=== PATIENT | female | born 1960 | race Caucasian/White ===

== ENCOUNTER 2016-11-20 08:12 | Emergency (ER) | payer MEDICAID ==
[~2016-11-20] VITALS: Ht 162.6 cm; Wt 59.0 kg
[2016-11-20 08:12] VITALS: BP_SYST 133
[2016-11-20] MEDS ORDERED: NACL 0.9% 1,000 ML IV ONE (09:00)
[2016-11-20 09:31] LABS: BASOPHILS % (AUTO) 0.2 % (0.0-2.0); EOSINOPHILS % (AUTO) 0.1 % (0.0-4.0); HEMATOCRIT 36.5 % (36-48); HEMOGLOBIN 11.9 g/dL (12.0-16.0); LYMPHOCYTES # (AUTO) 0.3 K/uL (1.0-5.5); LYMPHOCYTES % (AUTO) 9.8 % (20.5-51.5); MEAN CORPUSCULAR HEMOGLOBIN 29 pg (27-31); MEAN CORPUSCULAR HGB CONC 33 % (32-36); MEAN CORPUSCULAR VOLUME 88 fL (79.0-98.0); MONOCYTES # (AUTO) 0.2 K/uL (0.0-1.0); MONOCYTES % (AUTO) 8.3 % (1.7-9.3); NEUTROPHILS # (AUTO) 2.1 K/uL (1.8-7.7); NEUTROPHILS % (AUTO) 81.6 % (40.0-70.0); PLATELET COUNT (AUTO) 124 K/uL (130-430); RED BLOOD CELL COUNT(AUTO) 4.15 MIL/uL (4.2-6.2); RED CELL DISTRIBUTION WIDTH 13.2 % (9.0-15.0); WHITE BLOOD COUNT (AUTO) 2.6 K/uL (4.8-10.8)
[2016-11-20 09:34] LABS: CALCIUM 8.3 mg/dL (8.4-11.0); CREATININE 0.96 mg/dL (0.55-1.30); POTASSIUM 3.8 mmol/L (3.5-5.1)
[2016-11-20 09:39] LABS: ALBUMIN 3.6 g/dL (3.4-4.8); TOTAL BILIRUBIN 0.4 mg/dL (0.0-1.0)
[2016-11-20 09:51] LABS: BILIRUBIN,URINE NEGATIVE (NEGATIVE); BLOOD, URINE 1+ (NEGATIVE); CLARITY/URINE CLEAR (CLEAR); COLOR,URINE YELLOW (YELLOW); GLUCOSE,URINE NEGATIVE (NEGATIVE); KETONES,URINE TRACE (NEGATIVE); LEUKOCYTE ESTERASE ,URINE NEGATIVE (NEGATIVE); NITRITE, URINE NEGATIVE (NEGATIVE); PH,URINE 7.5 (5.0-8.0); PROTEIN URINE NEGATIVE (NEGATIVE); UROBILINOGEN,URINE 0.2 (0.2-1.0)
[2016-11-20 09:59] LABS: BACTERIA,URINE FEW /HPF (None Seen); RBC,URINE 0-3 /HPF (0-3); WBC,URINE 0-3 /HPF (0-3)
[2016-11-20 10:50] VITALS: BP_SYST 132
== END 2016-11-20 10:50 | disposition home or self-care (01) ==
LOC: SED 08:12
DX: B33.8 Other specified viral diseases (principal); M79.1 Myalgia
CPT/HCPCS: 36415; 71010; 80053; 81000; 83605; 85025; 87040; 96360; 96361; 99285; J7030

== ENCOUNTER 2016-11-22 20:00 | Emergency (ER) | payer MEDICAID ==
[~2016-11-22] VITALS: Ht 162.6 cm; Wt 63.5 kg
[2016-11-22 20:00] VITALS: BP_SYST 135
--- NOTE | 2016-11-22 20:00 | NUR ---
Patient to ER bed 3 to gown for evaluation. Side rails up. Report given to Katt SAMPSON.
--- NOTE | 2016-11-22 20:05 | NUR ---
Patient AAO x4, sitting in bed, restless, sister at bedside, c/o flu-like symptoms x 7 days with nausea/ vomiting and inability to "keep food or fluids down". No acute distress noted. Will continue to monitor.
--- NOTE | 2016-11-22 20:15 | NUR ---
ER at bedside examining patient.
[2016-11-22] MEDS ORDERED: NACL 0.9% 1,000 ML IV ONE (20:45)
[2016-11-22] MEDS ORDERED: ONDANSETRON HCL 4 MG/2 ML VIAL IVP ONE (20:45)
[2016-11-22 21:08] LABS: ANION GAP 7 (5-15); CALCIUM 8.2 mg/dL (8.4-11.0); CHLORIDE 103 mmol/L (98-107); CREATININE 0.83 mg/dL (0.55-1.30); GLUCOSE 118 mg/dL (70-99); POTASSIUM 3.6 mmol/L (3.5-5.1); SODIUM SERUM 136 mmol/L (136-145); UREA NITROGEN, BLOOD 9 mg/dL (8-21)
[2016-11-22 21:10] LABS: GFR AFRICAN AMERICAN 92 mL/min (>90)
[2016-11-22 21:15] LABS: INR 1.1 (0.8-1.2)
[2016-11-22 21:21] LABS: BASOPHILS % (AUTO) 0.1 % (0.0-2.0); HEMOGLOBIN 10.4 g/dL (12.0-16.0); LYMPHOCYTES # (AUTO) 0.3 K/uL (1.0-5.5); LYMPHOCYTES % (AUTO) 8.8 % (20.5-51.5); MEAN CORPUSCULAR HEMOGLOBIN 29 pg (27-31); MEAN CORPUSCULAR HGB CONC 34 % (32-36); MEAN CORPUSCULAR VOLUME 87 fL (79.0-98.0); MONOCYTES # (AUTO) 0.2 K/uL (0.0-1.0); MONOCYTES % (AUTO) 4.8 % (1.7-9.3); NEUTROPHILS # (AUTO) 2.9 K/uL (1.8-7.7); NEUTROPHILS % (AUTO) 86.3 % (40.0-70.0); RED BLOOD CELL COUNT(AUTO) 3.58 MIL/uL (4.2-6.2); RED CELL DISTRIBUTION WIDTH 12.7 % (9.0-15.0); WHITE BLOOD COUNT (AUTO) 3.4 K/uL (4.8-10.8)
[2016-11-22 21:25] LABS: PLATELET COUNT (AUTO) 105 K/uL (130-430)
[2016-11-22 21:27] LABS: ALANINE AMINOTRANSFERASE 61 U/L (12-78); ALBUMIN 3.3 g/dL (3.4-4.8); ASPARTATE AMINOTRANSFERASE 75 U/L (10-37); FREE T4 (FREE THYROXINE) 0.8 ng/dL (0.6-1.6); TOTAL BILIRUBIN 0.4 mg/dL (0.0-1.0); TOTAL PROTEIN, SERUM 6.5 g/dL (6.4-8.3)
[2016-11-22 21:29] LABS: ALCOHOL, BLOOD < 3 mg/dL (<10)
--- NOTE | 2016-11-22 22:00 | NUR ---
Per Dr. Reveles EKG and Urine collection are not needed. Verabl order to D/C.
[2016-11-22 22:15] VITALS: BP_SYST 120
--- NOTE | 2016-11-22 22:15 | NUR ---
Patient given written and verbal discharge instructions and verbalizes understanding. ER MD discussed with patient the results and treatment provided. Patient in stable condition. ID arm band removed. IV catheter removed intact and dressing applied, no active bleeding. Rx of zofran given. Patient educated on pain management and to follow up with PMD. Pain Scale 0/10 . Opportunity for questions provided and answered.
== END 2016-11-22 22:15 | disposition home or self-care (01) ==
LOC: SED 20:00
DX: R11.2 Nausea with vomiting, unspecified (principal); R53.1 Weakness; R50.9 Fever, unspecified
CPT/HCPCS: 36415; 74020; 80053; 83605; 83880; 84439; 84484; 85025; 85610; 87040; 96361; 96374; 99285; G0482; J2405; J7030

== ENCOUNTER 2016-11-25 13:06 | Inpatient (IN) | payer MEDICAID ==
[~2016-11-25] VITALS: Ht 162.6 cm; Wt 62.1 kg
[2016-11-25 13:09] VITALS: BP_SYST 128
--- NOTE | 2016-11-25 13:12 | NUR ---
Pt states that she has had nausea and vomiting for the past 10 days with fevers. Pt states there is a weird smell that makes her nauseous. Pt has complaints of severe headache 03/01. Pt states that she has been in the ER twice since the symptoms started and has received hydration and zofran. No other injuries/complaints per pt or noted.
[2016-11-25] MEDS ORDERED: NACL 0.9% 1,000 ML IV ONE (14:00)
[2016-11-25] MEDS ORDERED: ONDANSETRON HCL 4 MG/2 ML VIAL IVP ONE (14:00)
--- NOTE | 2016-11-25 14:13 | NUR ---
PT REFUSED CHEST XRAY, STATES SHE JUST HAD ONE A FEW DAYS AGO HERE. DR OBRIEN AWARE.
--- NOTE | 2016-11-25 14:17 | NUR ---
TAKEN TO RADIOLOGY FOR TESTING VIA DAT
--- NOTE | 2016-11-25 14:18 | NUR ---
Pt was taken to CT in stable condition
--- NOTE | 2016-11-25 14:21 | NUR ---
Pt refused CXR because she had one on , Dr Reveles is aware
[2016-11-25] MEDS: DIPHENHYDRAMINE INJ 50 MG/ML VIAL IVP ONE ×2 (14:55→14:58)
--- NOTE | 2016-11-25 15:00 | NUR ---
Pt is resting in bed with no noted distress or discomfort.
[2016-11-25 15:14] LABS: BASOPHILS % (AUTO) 0.1 % (0.0-2.0); EOSINOPHILS % (AUTO) 0.1 % (0.0-4.0); HEMOGLOBIN 10.1 g/dL (12.0-16.0); LYMPHOCYTES # (AUTO) 0.6 K/uL (1.0-5.5); LYMPHOCYTES % (AUTO) 9.8 % (20.5-51.5); MEAN CORPUSCULAR HEMOGLOBIN 29 pg (27-31); MEAN CORPUSCULAR HGB CONC 33 % (32-36); MEAN CORPUSCULAR VOLUME 88 fL (79.0-98.0); MONOCYTES # (AUTO) 0.4 K/uL (0.0-1.0); NEUTROPHILS # (AUTO) 5.1 K/uL (1.8-7.7); RED BLOOD CELL COUNT(AUTO) 3.54 MIL/uL (4.2-6.2); RED CELL DISTRIBUTION WIDTH 13.1 % (9.0-15.0); WHITE BLOOD COUNT (AUTO) 6.1 K/uL (4.8-10.8)
[2016-11-25 15:20] LABS: CALCIUM 8.1 mg/dL (8.4-11.0); CREATININE 0.93 mg/dL (0.55-1.30); POTASSIUM 4.2 mmol/L (3.5-5.1)
[2016-11-25 15:22] LABS: INR 1.1 (0.8-1.2); PROTHROMBIN TIME 11.6 SECS (9.5-12.5)
[2016-11-25 15:38] LABS: ALBUMIN 3.1 g/dL (3.4-4.8); TOTAL BILIRUBIN 0.6 mg/dL (0.0-1.0); TOTAL PROTEIN, SERUM 6.4 g/dL (6.4-8.3)
[2016-11-25 15:42] LABS: PLATELET COUNT (AUTO) 89 K/uL (130-430)
--- NOTE | 2016-11-25 15:45 | NUR ---
Pt is eating fruit and jello with no difficulity.
[2016-11-25 15:54] LABS: BILIRUBIN,URINE 1+ (NEGATIVE); BLOOD, URINE 2+ (NEGATIVE); CLARITY/URINE CLEAR (CLEAR); COLOR,URINE AMBER (YELLOW); GLUCOSE,URINE NEGATIVE (NEGATIVE); KETONES,URINE 2+ (NEGATIVE); LEUKOCYTE ESTERASE ,URINE NEGATIVE (NEGATIVE); NITRITE, URINE NEGATIVE (NEGATIVE); PROTEIN URINE 1+ (NEGATIVE)
[2016-11-25 16:18] LABS: BACTERIA,URINE FEW /HPF (None Seen); COARSE GRANULAR CASTS,URINE 0-1 /LPF (None Seen); URINE AMORPHOUS URATE 2+ /HPF (None Seen); WBC,URINE 0-3 /HPF (0-3)
[2016-11-25 16:19] LABS: MUCUS,URINE 2+ /LPF (None Seen)
[2016-11-25 16:21] LABS: ERYTHROCYTE SEDIMENTATION RATE 12 MM/HR (0-20)
--- NOTE | 2016-11-25 16:40 | NUR ---
Dr Reveles is aware of low grade temp of 100.2 and medications are being ordered
[2016-11-25] MEDS ORDERED: AMPICILLIN SODIUM/SULBACTAM NA 3 GM in NS 100 ML IV ONE (16:45)
[2016-11-25] MEDS ORDERED: KETOROLAC TROMETHAMINE 30 MG VIAL IVP ONE (16:45)
[2016-11-25] MEDS ORDERED: ACETAMINOPHEN 500 MG TABLET PO ONE ×2 (16:45)
[2016-11-25] MEDS ORDERED: AMPICILLIN SODIUM/SULBACTAM NA 3 GM VIAL ONE (17:05)
--- NOTE | 2016-11-25 17:20 | NUR ---
Pt complaining of headache, medication was given, IV ATB given, lights are off and pt has cold cloth on forehead.
[2016-11-25] MEDS ORDERED: NACL 0.9% 1,000 ML IV SCH (18:00)
[2016-11-25] MEDS ORDERED: MORPHINE 2 MG/ML INJ. SYRINGE IVP PRN (18:30)
--- NOTE | 2016-11-25 18:37 | NUR ---
Waiting for Dr Hernandez to see the pt and chart on the pt before taking her to room 126B.
--- NOTE | 2016-11-25 19:00 | NUR ---
Patient will be admitted to care of Dr Hernandez. Admitted to Med Surg unit. Will go to room 126B. Belongings list completed. Summary report printed. Report will be given at bedside. Addendum: 11/25/[address] at [address] Hernandez was with the pt until 1854
--- NOTE | 2016-11-25 19:04 | NUR ---
ADMISSION NOTE Received patient from ER via gurney. Patient admitted with diagnosis of abdominal pain x10 days . Patient is awake, alert, oriented X 4. Patient oriented to hospital room, call light, toileting, pain management and safety-teach back done. Personal belongings checked and Belongings List documented. Call light within reach.
[2016-11-25 19:08] VITALS: BP_SYST 111
--- NOTE | 2016-11-25 19:55 | NUR ---
CONSULTATION PAGED REASON FOR CONSULTATION:FUO WAS CONSULT CALLED?Y PERSON WHO WAS NOTIFIED:LEONEL CONSULTING PHYSICIAN:JOSE HARRY ([facility] HEAD OF ACQUISITIONS) [facility] SPECIALTY:ID BRICK K[facility]N [facility] PHONE NUMBER:[phone]
[2016-11-25 20:00] VITALS: BP_SYST 114
[2016-11-25] MEDS: DOXYCYCLINE HYCLATE 100 MG CAPSULE PO SCH (22:15)
[2016-11-25] MEDS: cefTRIAXone 1 GM in D5W 50 ML IV SCH (23:48)
[2016-11-25] MEDS: D5/0.45 NS 1,000 ML IV SCH (23:51)
[2016-11-26 00:34] VITALS: BP_SYST 116
[2016-11-26] MEDS: PIPERACILLIN/TAZO 2.25G/DEX-IS 50 ML IV SCH ×2 (01:22→06:21)
[2016-11-26 03:26] VITALS: BP_SYST 112
[2016-11-26 07:42] LABS: BASOPHILS % (AUTO) 0.1 % (0.0-2.0); EOSINOPHILS % (AUTO) 0.1 % (0.0-4.0); HEMATOCRIT 30.5 % (36-48); HEMOGLOBIN 9.9 g/dL (12.0-16.0); LYMPHOCYTES % (AUTO) 15.7 % (20.5-51.5); MEAN CORPUSCULAR HEMOGLOBIN 29 pg (27-31); MEAN CORPUSCULAR HGB CONC 33 % (32-36); MEAN CORPUSCULAR VOLUME 89 fL (79.0-98.0); MONOCYTES # (AUTO) 0.8 K/uL (0.0-1.0); MONOCYTES % (AUTO) 12.3 % (1.7-9.3); NEUTROPHILS # (AUTO) 4.8 K/uL (1.8-7.7); NEUTROPHILS % (AUTO) 71.8 % (40.0-70.0); RED BLOOD CELL COUNT(AUTO) 3.43 MIL/uL (4.2-6.2); RED CELL DISTRIBUTION WIDTH 12.9 % (9.0-15.0); WHITE BLOOD COUNT (AUTO) 6.6 K/uL (4.8-10.8)
[2016-11-26 08:00] VITALS: BP_SYST 121
--- NOTE | 2016-11-26 08:00 | NUR ---
NOTE PT RESTING IN BED, WAITING FOR US OF ABDOMEN AND PELVIS. PT HAS IVF'S INFUSING WELL THROUGH LEFT HAND IV SITE AT THIS TIME. DENIES ANY SOB/RESP DISTRESS OR PAIN/DISCOMFORT. HAS THE NAUSEA FEELING AND IS PERSISTENT. CALL LIGHT WITHIN REACH.
[2016-11-26 08:04] LABS: ALBUMIN 2.5 g/dL (3.4-4.8); CALCIUM 7.7 mg/dL (8.4-11.0); CREATININE 0.85 mg/dL (0.55-1.30); POTASSIUM 3.4 mmol/L (3.5-5.1); TOTAL BILIRUBIN 0.5 mg/dL (0.0-1.0); TOTAL PROTEIN, SERUM 5.6 g/dL (6.4-8.3)
[2016-11-26] MEDS: ENOXAPARIN SODIUM 30 MG/0.3 ML SYRINGE SUBCUT SCH (08:29)
[2016-11-26] MEDS: DOXYCYCLINE HYCLATE 100 MG CAPSULE PO SCH ×2 (08:29→20:16)
[2016-11-26 09:50] LABS: PLATELET COUNT (AUTO) 95 K/uL (130-430)
--- NOTE | 2016-11-26 10:00 | NUR ---
NOTE PT HAD ALL HER TESTS COMPLETED AT THIS TIME. PT'S DAUGHTER AT BEDSIDE ASSISTING PT IN HER NEEDS. PT DENIES ANY NEEDS AT THIS TIME. CALL LIGHT WITHIN REACH.
[2016-11-26 12:17] VITALS: BP_SYST 133
[2016-11-26] MEDS ORDERED: ONDANSETRON HCL 4 MG/2 ML VIAL IVP PRN (12:30)
[2016-11-26] MEDS: IBUPROFEN 200 MG TABLET PO SCH ×3 (12:30→20:16)
--- NOTE | 2016-11-26 12:30 | NUR ---
NOTE PT SEEN BY DR THOMPSON AT THIS TIME. QUESTIONS/CONCERNS WERE ANSWERED AT THIS TIME. ORDERS WERE PUT IN AND CARRIED OUT. PT WANTS TO JUST REST AND STATES SHE WILL CALL IF SHE HAS ANY NEEDS. PT IS CHECKED ON Q1' AND PRN ALL SHIFT FOR NEEDS AND CARE. CALL LIGHT WITHIN REACH.
--- NOTE | 2016-11-26 14:00 | NUR ---
Discharge planning Met with patient at bedside to discuss possible transfer to contracted facility. Patient understands that she is OON and is agreeable to transfer if indicated by MD and insurance. Paged MD to see if patient is stable for transfer.
--- NOTE | 2016-11-26 15:00 | NUR ---
NOTE PT WAS MOVED FROM ROOM 128B TO ROOM 130B AT THIS TIME VIA BED. ALL PT'S BELONGINGS AND EQUIPMENT WERE TRANSFERRED WELL. PT STILL RESTING IN BED AND IVF'S INFUSING WELL. PT HAS FAMILY MEMBER AT BEDSIDE AT THIS TIME. PT HAS NAUSEA FEELING, REFUSES ANY MEDICATIONS AT THIS TIME. STATES IT MAKES THE NAUSEA FEELINGS WORSE. CALL LIGHT WITHIN REACH.
--- NOTE | 2016-11-26 16:00 | NUR ---
Case mgt: tyrone Owen spoke with Radha at [facility]--[facility] wants to transfer pt in-network--Per Dr. Adams this is not his pt, so he provided us with Dr. Hernandez's cell#. Lexie provided Radha at [facility] with Dr. Hernandez's cell #, but Radha says the phone just rings and their MD cannot leave a message because the voice mailbox is full. I messaged Dr. Hernandez at [phone] that the MD for [facility] is trying to call her. tyrone Owen , has left a transfer packet at the nurse's station. AYESHA SAMPSON
[2016-11-26] MEDS: D5/0.45 NS 1,000 ML IV SCH ×2 (16:44→21:04)
[2016-11-26 16:54] VITALS: BP_SYST 134
[2016-11-26] MEDS ORDERED: POTASSIUM CHLORIDE 20 MEQ TAB.PRT.SR PO ONE (17:30)
--- NOTE | 2016-11-26 18:00 | NUR ---
NOTE PT RESTING IN BED WITH FRIEND AND DAUGHTER AT BEDSIDE. IVF'S INFUSING WELL. PT SIPPING ON ROB TIMI AND SALTINE CRACKERS. PT HAS PERSISTENT NAUSEA FEELING WHICH HAS SUBSIDED GREATLY PER PT AFTER SIPPING ON ROB TIMI. NO SOB/RESP DISTRESS OR PAIN/DISCOMFORT NOTED AT THIS TIME. PT SITTING UP IN BED AT 45'. NO NEEDS NOTED. CALL LIGHT WITHIN REACH.
[2016-11-26 19:00] LABS: IRON (SERUM) 18 mcg/dL (37-145); TOTAL IRON BIND. CAPACITY 221 ug/dL (250-450)
[2016-11-26] MEDS: cefTRIAXone 1 GM in D5W 50 ML IV SCH (19:02)
[2016-11-26 19:20] VITALS: BP_SYST 130
--- NOTE | 2016-11-26 19:20 | NUR ---
INITIAL NOTES; -Pt is a/ox4. Pt denies any pain, sob,or acute distress. IV left hand #22,patent, no s/s any infiltration. IVF D5 1/2NS @ 75ml/hr. Fall precaution in place. Bed alarm in place, bed low position and side railsx2. Call light w/in reach. Daughter is at bedside. Discussed poc,all safety measures, pain mgmt, N&V mgmt, to use call light to inform nurse, pt verbalized understanding. Continue to monitor pt.
--- NOTE | 2016-11-26 20:16 | NUR ---
NOTES; Pt is c/o headache, refused to take Advil 200mg po as 2100 scheduled medication. Pt stated,''It will make my head worse.'' Informed pt if change mind to use call light to ask for Advil 200mg po for headache, pt verbalized understanding. IV left hand #22,patent, no s/s any infiltration. IVF D5 1/2NS @ 75ml/hr. Fall precaution in place. Bed alarm in place, bed low position and side railsx2. Call light w/in reach. Daughter is at bedside. Continue to monitor
--- NOTE | 2016-11-26 21:34 | NUR ---
NAUSEA AND VOMITING -Pt vomited 50ml yellow clear emesis. Pt refused to take antiemetic medication this time. Pt stated,''it will make it worse.'' Reminded pt if change mind and want to take antiemetic medication to use call light to inform nurse, pt verbalized understanding. Amna-JONATHAN changed dirty sheet, gown, and linen. Now, bed,linen,sheet, and gown is cleaned. Call light w/in reach. Continue to monitor pt.
--- NOTE | 2016-11-26 22:30 | NUR ---
ROUNDS; -Pt is resting Pt denies any pain,n &v, sob,or acute distress. IV left hand patent, no s/s any infiltration. IVF D5 1/2NS @ 75ml/hr. Fall precaution in place. Bed alarm in place, bed low position and side railsx2. Call light w/in reach. Daughter is at bedside. Continue to monitor pt.
--- NOTE | 2016-11-27 00:10 | NUR ---
ENDORSED TO MALENA-RN TO CONTINUE CARE -Pt is resting. No s/s any pain,n &v, sob,or acute distress noted. IV left hand patent, no s/s any infiltration. IVF D5 1/2NS @ 75ml/hr. Fall precaution in place. Bed alarm in place, bed low position and side railsx2. Call light w/in reach.
--- NOTE | 2016-11-27 00:11 | NUR ---
ASSUMPTION OF CARE ASSUMED CARE OF PT., PT. IS AMBULATING FROM THE BATHROOM, NOTED WITH SLOW, STEADY, GAIT. UPDATED WITH PLAN OF CARE, ENCOURAGED PT. TO USE CALL LIGHT FOR ASSISTANCE, CALL LIGHT WITHIN REACH, BED IN LOWEST POSITION.
[2016-11-27 00:26] VITALS: BP_SYST 130
--- NOTE | 2016-11-27 02:00 | NUR ---
RN ROUNDS PT. RESTING QUIETLY, VITAL SIGNS STABLE, NO DISTRESS NOTED, NO S/S OF PAIN OR DISCOMFORT, CALL LIGHT WITHIN REACH, BED IN LOWEST POSITION.
[2016-11-27 04:00] VITALS: BP_SYST 127
--- NOTE | 2016-11-27 04:00 | NUR ---
RN ROUNDS PT. SLEEPING, VITAL SIGNS STABLE, NO DISTRESS NOTED, NO S/S OF PAIN OR DISCOMFORT, CALL LIGHT WITHIN REACH, BED IN LOWEST POSITION.
[2016-11-27 06:29] LABS: BASOPHILS % (AUTO) 0.1 % (0.0-2.0); EOSINOPHILS % (AUTO) 0.1 % (0.0-4.0); HEMATOCRIT 26.5 % (36-48); HEMOGLOBIN 8.9 g/dL (12.0-16.0); LYMPHOCYTES # (AUTO) 1.4 K/uL (1.0-5.5); MEAN CORPUSCULAR HEMOGLOBIN 29 pg (27-31); MEAN CORPUSCULAR HGB CONC 33 % (32-36); MEAN CORPUSCULAR VOLUME 87 fL (79.0-98.0); MONOCYTES # (AUTO) 0.7 K/uL (0.0-1.0); MONOCYTES % (AUTO) 13.8 % (1.7-9.3); NEUTROPHILS # (AUTO) 2.9 K/uL (1.8-7.7); PLATELET COUNT (AUTO) 120 K/uL (130-430); RED BLOOD CELL COUNT(AUTO) 3.06 MIL/uL (4.2-6.2); RED CELL DISTRIBUTION WIDTH 13.2 % (9.0-15.0)
[2016-11-27 06:38] LABS: ALBUMIN 2.4 g/dL (3.4-4.8); CALCIUM 7.3 mg/dL (8.4-11.0); CREATININE 0.79 mg/dL (0.55-1.30); POTASSIUM 3.2 mmol/L (3.5-5.1); TOTAL BILIRUBIN 0.4 mg/dL (0.0-1.0); TOTAL PROTEIN, SERUM 5.8 g/dL (6.4-8.3)
--- NOTE | 2016-11-27 07:30 | NUR ---
INITIAL NOTE RECEIVED PATIENT FROM CUSTOMER SERVICE ASSOCIATE NURSE, PATIENT IS CURRENTLY RESTING IN BED, NO SIGNS OF DISTRESS NOTED, PATIENT IS ALERT AND ORIENTED X 4, ASSESSMENT COMPLETE, PATIENT HAS IV IN LEFT HAND WITH FLUIDS INFUSING, NO SIGNS OF INFILTRATION NOTED, INSTRUCTED PATIENT TO USE CALL CHAPMAN IF ASSISTANCE IS NEEDED, PATIENT VERBALIZED UNDERSTANDING, CALL CHAPMAN LEFT NEXT TO PATIENT'S HAND, BED IN LOWEST POSITION, SIDE RAILS UP, FALL PRECAUTIONS IN PLACE. NO OTHER NEEDS AT THIS TIME, WILL CONTINUE TO MONITOR.
[2016-11-27 08:00] VITALS: BP_SYST 121
[2016-11-27] MEDS: IBUPROFEN 200 MG TABLET PO SCH ×2 (08:17→15:00)
[2016-11-27] MEDS: DOXYCYCLINE HYCLATE 100 MG CAPSULE PO SCH (08:18)
[2016-11-27] MEDS: D5/0.45 NS 1,000 ML IV SCH (08:25)
[2016-11-27] MEDS: ENOXAPARIN SODIUM 30 MG/0.3 ML SYRINGE SUBCUT SCH (08:25)
--- NOTE | 2016-11-27 08:27 | NUR ---
MEDICATIONS PATIENT RECEIVED MORNING MEDICATION, EDUCATED PATIENT ON REASON FOR MEDICATION AND POTENTIAL SIDE EFFECT, PATIENT REFUSED ADVIL AND ORAL ANTIBIOTIC, EDUCATED PATIENT ON IMPORTANCE OF MEDICATIONS, PATIENT STATED SHE DOES NOT WANT TO TAKE IT BECAUSE OF UPSET STOMACH, WILL INFORM DOCTOR, NO OTHER NEEDS AT THIS TIME, WILL CONTINUE TO MONITOR. FALL PRECAUTIONS IN PLACE.
--- NOTE | 2016-11-27 09:23 | NUR ---
Nutrition Update Melchor Scale 18 noted. Pt admitted for abd pain, fever r/o cholelithiasis. Diet: clear liquid BMI: 23.5 kg/m2 RD to follow per nutrition care standards.
--- NOTE | 2016-11-27 10:00 | NUR ---
RN ROUNDS PATIENT IS CURRENTLY RESTING IN BED, PATIENT STATES SHE STILL DOES NOT HAVE APPETITE TO EAT, WILL TRY LATER, WILL CONTINUE TO MONITOR.
--- NOTE | 2016-11-27 10:01 | NUR ---
DISCHARGE PLANNING DC order Transfer to contracted hospital. Ordered Radiology CD. Placed transportation packet with CD in nurses station.
--- NOTE | 2016-11-27 10:36 | NUR ---
Discharge Planning Received order for transfer to [facility]. Called and left message for MANDY Garcia @ [facility] , letting her know that patient is stable for transfer to [facility]. Provided Radha with Dr Hernandez's contact # for MD to . Addendum: 11/27/16 at 1158 by Queenie Koo RN Met with Dr Hernandez in Nurse's station and after speaking with Dr Ballard she has decided to discharge patient home. Patient is agreeable to discharge. Contacted MANDY Caldera @ [email or web address] and updated him with plan to dc patient home. Werner requested today's progress notes and those were faxed.
[2016-11-27] MEDS ORDERED: METOCLOPRAMIDE HCL 10 MG/2 ML VIAL IVP PRN (10:45)
[2016-11-27] MEDS ORDERED: POTASSIUM CHLORIDE 20 MEQ TAB.PRT.SR PO ONE (10:45)
--- NOTE | 2016-11-27 12:03 | NUR ---
RN ROUNDS PATIENT IS CURRENTLY RESTING IN BED, PATIENT IS WAITING FOR FOOD FROM FRIEND WHICH WAS APPROVED BY DR. THOMPSON AND DR. ROGERS, PATIENT STATES SHE THINKS SHE WILL FEEL BETTER AFTER EATING, PER DR. ROGERS PATIENT CAN BE DISCHARGED AFTER LUNCH, NO OTHER NEEDS AT THIS TIME, WILL CONTINUE TO MONITOR PATIENT, FALL PRECAUTIONS IN PLACE.
[2016-11-27 12:27] VITALS: BP_SYST 137
--- NOTE | 2016-11-27 14:05 | NUR ---
RN ROUNDS PATIENT IS CURRENTLY UP WALKING, PATIENT IS STABLE, PATIENT STATES SHE IS FEELING BETTER, INSTRUCTED PATIENT TO CALL IF ASSISTANCE IS NEEDED, PATIENT VERBALIZED UNDERSTANDING, WILL CONTINUE TO MONITOR
[2016-11-27 14:11] VITALS: BP_SYST 137
[2016-11-27] MEDS ORDERED: DOXY-168 PO (14:17)
--- NOTE | 2016-11-27 15:40 | NUR ---
D/C Patient Patient given medication reconciliation form and D/C instructions. Exit Care provided. Patient verbalized understanding. MD discussed with patient the results and treatment provided. Ambulatory with steady gait for discharge to home. Patient in stable condition, ID band removed. IV catheter removed, intact and dressing applied, no active bleeding. Rx of doxycycline given. Patient educated on pain management. All belongings sent with patient.
[2016-11-27 16:10] VITALS: BP_SYST 131
== END 2016-11-27 15:50 | disposition home or self-care (01) | DRG 249 ==
LOC: SED 13:38 → SMU 17:57
DX: A08.4 Viral intestinal infection, unspecified (principal); D69.6 Thrombocytopenia, unspecified; E44.0 Moderate protein-calorie malnutrition; K80.20 Calculus of gallbladder without cholecystitis without obstruction; R16.2 Hepatomegaly with splenomegaly, not elsewhere classified; N85.2 Hypertrophy of uterus; D64.9 Anemia, unspecified; Y92.89 Other specified places as the place of occurrence of the external cause; R74.0 Nonspecific elevation of levels of transaminase and lactic acid dehydrogenase [LDH]; K57.90 Diverticulosis of intestine, part unspecified, without perforation or abscess without bleeding
CPT/HCPCS: 36415; 70450-TC; 70486-TC; 76700-TC; 76830-TC; 76857; 80053; 81000-TC; 83540-TC; 83550-TC; 83605; 83690-TC; 85025; 85610-TC; 85651-TC; 86038; 86140; 86308-TC; 86592; 86677; 87040-TC; 87045-TC; 87046; 87177; 87449; 93005; 96361; 96365; 96375; 99285; J0295; J0696; J1200; J1650; J1885; J2270; J2405; J2543; J2765; J7030; J7060

== ENCOUNTER → 2023-01-23 | Emergency (ER) | payer MEDICAID ==
[~2023-01-23] VITALS: Ht 162.6 cm; Wt 67.1 kg
[~2023-01-23] MED LIST: ATEN50TA PO; DOXY-244 PO; VIS25 PO
[2023-01-23 15:37] VITALS: BP_SYST 176; PULSE 87; RESP 22; TEMP 98.3; O2SAT 98
[2023-01-23 16:21] LABS: BILIRUBIN,URINE NEGATIVE (NEGATIVE); BLOOD, URINE 1+ (NEGATIVE); COLOR,URINE YELLOW (YELLOW); GLUCOSE,URINE NEGATIVE (NEGATIVE); KETONES,URINE NEGATIVE (NEGATIVE); LEUKOCYTE ESTERASE ,URINE NEGATIVE (NEGATIVE); NITRITE, URINE NEGATIVE (NEGATIVE); PROTEIN URINE NEGATIVE (NEGATIVE); UROBILINOGEN,URINE 0.2 (0.2-1.0)
[2023-01-23 16:23] LABS: CLARITY/URINE SLIGHTLY CLOUDY (CLEAR)
[2023-01-23 16:35] LABS: BACTERIA,URINE RARE /HPF (None Seen); MUCUS,URINE None Seen /LPF (None Seen); RBC,URINE 0-3 /HPF (0-3); WBC,URINE NONE SEEN /HPF (0-3)
[2023-01-23 17:54] VITALS: BP_SYST 168; PULSE 72; RESP 18; TEMP 98.1; O2SAT 98
--- NOTE | 2023-01-23 17:57 | NUR ---
Patient given written and verbal discharge instructions and verbalizes understanding. ER MD discussed with patient the results and treatment provided. Patient in stable condition. ID arm band removed. Rx of given. Patient educated on pain management and to follow up with PMD. Pain Scale . Opportunity for questions provided and answered. Medication side effect fact sheet provided.
== END | disposition home or self-care (01) ==
LOC: SED 15:25
DX: R00.2 Palpitations (principal); R42 Dizziness and giddiness; R10.2 Pelvic and perineal pain; Z79.899 Other long term (current) drug therapy
CPT/HCPCS: 81000; 93005; 99284